=== PATIENT | female | born 1955 | race Caucasian/White ===

== ENCOUNTER 2021-11-17 17:54 | Emergency (ER) | payer OTHER, SELFPAY ==
[2021-11-17 17:58] VITALS: BP 126/77; PULSE 81; RESP 18; TEMP 36.3; O2SAT 93; BMI 25.0
--- NOTE | 2021-11-17 18:09 | EDS_ITS ---
HPI History of Present Illness Chief Complaint: Shortness of Breath Narrative Narrative: Patient presents with cough, and pulse ox of 91%. She has past medical history of hypothyroid, and states that she is on day 11 of COVID. She had a fever the first 5 days and has had night sweats for 10 days. Her night sweats resolved, but returned last evening. She states that she has been checking her pulse ox and it was as low as 91%. She called her primary care physician who told her she needed to come to the emergency department for an evaluation and get checked. She states she continues to have shortness of breath, occasional nonproductive cough, and fatigue. She is not on any m edication for COVID-19 because she was told that it would interact with some of her other medications. [facility] Medical History (Updated 11/17/21 @ 18:58 by Cruzito Null MD) COVID Allergy/AdvReac Type Severity Reaction Status Date / Time paclitaxel [From Taxol] Allergy Anaphylaxis Verified 11/17/21 17:58 thimerosal Allergy Hives Verified 11/17/21 17:58 simvastatin AdvReac Other Verified 11/17/21 17:58 topiramate AdvReac Other Verified 11/17/21 17:58 Social History Smoking Status: Unknown if ever smoked ROS ROS ED ROS Narrative Constitutional: No fever, no chills, positive night sweats. HEENT: No sore throat. No neck pain. No loss of vision. No rhinorrhea. Cardiovascular: No chest pain. No palpitations. No pedal edema. Respiratory: Positive nonproductive cough, positive shortness of breath. Abdominal: No abdominal pain. No nausea. No vomiting. Genitourinary: No dysuria. No hematuria. Musculoskeletal: No myalgias. No arthralgias. Neurologic: No headaches. No dizziness. No lightheadedness. Skin: No rash. No change in color. Psychiatric: No depression. No anxiety. EXAM Physical Exam Narrative Exam Narrative: Afebrile. Vital signs noted. Nontoxic-appearing. HEENT: Normocephalic. Atraumatic. PERRL, EOMI. Neck soft and supple. No point tenderness or step off. Cardiovascular: Regular rate and rhythm. No murmurs, rubs, or gallops appreciated. Respiratory: No tachypnea. Lungs clear to auscultation bilaterally. Gastrointestinal: Abdomen soft, nontender, with normoactive bowel sounds. No rebound or guarding. Neurological: Awake. Alert. Nonfocal, nonlateralizing. Skin: No rash. Normal color. No pallor. Musculoskeletal: No pedal edema. Full range of motion extremities. Const Vital Signs: 11/17/21 17:58 11/17/21 18:32 Temperature 97.4 F L Temperature Source Temporal Pulse Rate 81 Respiratory Rate 18 Respiratory Effort Normal Non-Labored Respiratory Depth Normal Respiratory Pattern Normal Blood Pressure 126/77 H Blood Pressure Mean 93 Pulse Ox 93 Oxygen Delivery Method Room Air MDM MDM MDM Narrative Medical decision making narrative: Pulse ox is 93% on room air at rest. She will be ambulated with a pulse ox here in the emergency department. We will obtain a chest x-ray to look for COVID-pneumonia. I do not feel laboratory work is indicated. She has a normal heart rate of 81. I am not concerned for pulmonary embolism. She is not having chest pain. Chest x-ray interpreted by myself shows no acute process, no pneumonia, no groundglass appearance/infiltrates. Ambulatory pulse ox was 96 to 97% according to the RN. There has been no evidence of hypoxia here. She does not qualify for home oxygen. At this point in time, she was reassured. I do not feel that Decadron is indicated. I feel she can be discharged safely home with follow-up to her primary care physician. Return instructions were reviewed. Disposition is discharged home in stable condition. Radiography Diagnostic Testing: Clinical Impression(s) from Imaging Studies Chest X-Ray 11/17/21 18:10 IMPRESSION: 1. No evidence of acute cardiopulmonary process Electronically Signed: Casey May MD at 18:52 EDT , Discharge Plan Triage Chief Complaint: Shortness of Breath ED Provider: Cruzito Null Dx/Rx/DC Orders Clinical Impression: COVID-19, Shortness of breath Instructions: Coronavirus Disease 2019 (COVID-19): Caring for Yourself or Others, ED Dyspnea Primary Care Provider: Rowan Capps NP Referrals: Rowan Capps [employer]CRETE BUCKET HOOKER, CONCR[employer] [employer]OOK[facility] [Primary Care Provider] - 1 Week if not improving Disposition Disposition: Home, Self Care
--- NOTE | 2021-11-17 18:10 | RAD_ITS ---
INDICATION: Shortness of Breath EXAMINATION/TECHNIQUE: X-RAY - XR Chest 1 View COMPARISON: None. FINDINGS: LIFE-SUPPORT AND LINES: 1. None HEART AND VESSELS: The cardiac silhouette, pulmonary vasculature have normal appearance. No evidence of congestive failure. LUNGS AND PLEURAL SPACES: Lungs are clear. No focal infiltrate, consolidation or effusions. No evidence of pneumothorax. No pulmonary mass is noted. MEDIASTINUM AND HILAR REGIONS: No masses adenopathy noted. No areas of calcification. Visualized upper airway is normal in position. BONY ELEMENTS: No acute bony changes noted. RAD/Chest 1 View (Portable) IMPRESSION: 1. No evidence of acute cardiopulmonary process Electronically Signed: Casey May MD at 18:52 EDT ,
[2021-11-17 18:31] VITALS: O2SAT 97
== END 2021-11-17 19:03 | disposition home or self-care (01) ==
PROVIDERS: Emergency Provider Emergency Medicine; PCP Registered Nurse; Visit Provider Emergency Medicine
DX: U07.1 COVID-19 (principal); R06.02 Shortness of breath; E03.9 Hypothyroidism, unspecified
CPT/HCPCS: 71045; 99282

== ENCOUNTER 2022-12-03 12:08 | Emergency (ER) | payer MEDICARE, SELFPAY ==
[2022-12-03 12:09] VITALS: BP 116/63; PULSE 74; RESP 14; TEMP 36.6; O2SAT 99
--- NOTE | 2022-12-03 12:26 | EDS_ITS ---
HPI <TRINITY Johnson - Last Filed: 12/03/22 16:03> History of Present Illness Chief Complaint: Eye Problem Narrative Narrative: Patient presenting today due to painful R eye movements that she has had since last night. She reports that she noticed the R periocular area was tender to touch when she was applying her eye cream last night. She denies any visual changes such as blurred vision, foreign body sensation in the eye, difficulty focusing the eye, or decreased visual acuity. She did not injure her eye, she is asymptomatic in the left eye. She reports that she had an infusion of Zometa for the first time on Monday that is used to treat hypercalcemia from the medication she is taking for her ovarian cancer. While getting that infusion she noticed that the right side of her lips felt swollen and numb. She did call her oncologist office today to report her eye symptoms and they told her that this can be a side effect of the Zometa and to follow-up with an silver wrapper immediately, however, she is unable to get into any because it is the weekend. Patient is a PMH of trigeminal neuralgia which was treated with a decompression surgery, migraines, ovarian cancer, and hypothyroidism. PFSH <TRINITY Johnson - Last Filed: 12/03/22 16:03> PFSH Medical History COVID Home Medications prednisone 20 mg tablet 20 mg PO BID #10 tabs 12/03/22 [Rx Last Taken Unknown] Allergy/AdvReac Type Severity Reaction Status Date / Time paclitaxel [From Taxol] Allergy Anaphylaxis Verified 12/03/22 12:09 thimerosal Allergy Hives Verified 12/03/22 12:09 simvastatin AdvReac Other Verified 12/03/22 12:09 topiramate AdvReac Other Verified 12/03/22 12:09 Social History Smoking Status: Unknown if ever smoked ROS <TRINITY Johnson - Last Filed: 12/03/22 16:03> ROS ED Constitutional Constitutional ED: Denies chills or fever(s) Eyes Eyes: Denies blurry vision, diplopia, discharge from eye(s), erythema, foreign body, photophobia or spots in vision ENT ENT ED: Denies discharge from eye(s) Cardiovascular Cardiovascular: Denies chest pain Respiratory/Chest Respiratory/Chest: Denies cough or dyspnea Gastrointestinal Gastrointestinal: Denies abdominal pain, nausea or vomiting Musculoskeletal Musculoskeletal: Denies arthralgias or myalgias Integumentary Denies abscess, Abrasions or rash Neurologic Neurologic: Denies headache(s) or weakness EXAM <TRINITY Johnson - Last Filed: 12/03/22 16:03> Physical Exam Const Vital Signs: 12/03/22 12:09 Temperature 98 F Temperature Source Temporal Pulse Rate 74 Respiratory Rate 14 Blood Pressure 116/63 Blood Pressure Mean 80 Pulse Ox 99 Oxygen Delivery Method Room Air Positive well nourished, well developed and no apparent distress General Appearance ED: well developed HEENT Reports normocephalic and head/scalp atraumatic Mouth ED: Yes moist mucous membranes normal Eyes PERRL, EOMs intact bilaterally, conjunctivae normal and no scleral icterus Visual Acuity: acuity normal Neck full ROM and supple Chest Wall inspection of chest normal Resp normal respiratory effort and clear to auscultation bilaterally Cardio regular rate and regular rhythm GI soft to palpation, non-tender, non-distended and no masses Back/Spine normal ROM and normal to inspection Extremity normal to inspection and full ROM Neuro oriented x3, CN's II-XII intact bilaterally, moves all extremities, no focal motor deficits and no sensory deficits noted Sensorium / Orientation: awake and alert Psych mental status grossly normal and thought process normal Skin no rashes or lesions noted and no wounds [facility] <TRINITY Johnson - Last Filed: 12/03/22 16:03> [facility] Narrative Medical decision making narrative: Patient presenting today due to painful extraocular eye movements that she has had since last night. She does not have any injection of the cornea to suggest acute glaucoma, corneal ulcer or abrasion. Visual acuity is intact. Labs obtained and are unremarkable. CT scan of the orbits obtained and is suggestive of possible bilateral orbital cellulitis, however this is not consistent with wagner fontenot's examination. Attending ED physician did discuss the case with ophthalmology and they feel it is more of an inflammatory response due to the medication Zometa. She will be put on prednisone and will be following up with the office on Monday. Patient is okay with this plan and will be discharged home in stable condition. She is comfortable with plan. I have personally performed a face to face assessment of the patient and have reviewed the ALEX Note. I performed a substantive portion of the visit including all aspects of the following. My lazaro findings include: History is [patient presents with right eye pain that started yesterday. Patient states that she had an infusion of Zometa 4 days ago. She had a virtual visit with nurse practitioner at [facility] [place] today regarding the eye pain and was told that she needed to be seen today. She denies any vision changes. She denies any trauma to her eye. She denies fever or recent illness. Patient states she has ovarian cancer but cannot tolerate chemotherapy and because they worry about hypercalcemia with her current treatment they were going to start the Zometa infusions and this was her first infusion. Nurse practitioner told her there may be a reaction to the Zometa and she need to be seen today.] Exam is [HEDAMIENPERRTHOMAS, EOMI. Cranial nerves II through XII grossly intact. TMs clear. Mucous membranes moist. No adenopathy. Patient has painful extraocular muscle movements although they are normal. Corneas clear and pupils are reactive bilaterally. Cardiovascular-regular rate and rhythm without murmur or ectopy Lungs-clear to auscultation, chest wall stable without crepitus or subcu emphysema Abdomen-normoactive bowel sounds, soft, nontender, no rebound or rigidity, no peritoneal signs. Extremities-intact ?4, normal range of motion, normal pulses, atraumatic] Medical Decison Making [patient with right eye pain after Zometa infusion 4 days ago. She had a CBC with differential that was normal. Chemistries unremarkable other than a slightly depressed calcium of 7.9. Patient had a CT scan of the orbits that showed some nonspecific stranding to the posterior aspect of the globe and anterior extraocular muscles. Findings were bilateral and radiology thought maybe represent orbital cellulitis. Clinically I do not feel she has orbital cellulitis. I did discuss case with Dr. Meeks who is on for ophthalmology and he feels this may be more of an inflammatory response related to the Zometa. Plan will be to treat patient with prednisone and have her follow-up with his office in 2 days. He will then likely order an outpatient MRI to evaluate further. I do not feel this needs to be done emergently today. Patient comfortable with plan.] Other additions or changes: [None] Lab Data Attestation: I reviewed the patient's lab results. Lab results narrative: CBC unremarkable, anion gap 3, BUN 19, calcium 7.9 <Dr. Fransisca Ferrara, DO - Last Filed: 12/03/22 15:34> [facility] Narrative Medical decision making narrative: I have personally performed a face to face assessment of the patient and have reviewed the ALEX Note. I performed a substantive portion of the visit including all aspects of the following. My lazaro findings include: History is [patient presents with right eye pain that started yesterday. Patient states that she had an infusion of Zometa 4 days ago. She had a virtual visit with nurse practitioner at [facility] [place] today regarding the eye pain and was told that she needed to be seen today. She denies any vision changes. She denies any trauma to her eye. She denies fever or recent illness. Patient states she has ovarian cancer but cannot tolerate chemotherapy and because they worry about hypercalcemia with her current treatment they were going to start the Zometa infusions and this was her first infusion. Nurse practitioner told her there may be a reaction to the Zometa and she need to be seen today.] Exam is [HEENT-PERRLA, EOMI. Cranial nerves II through XII grossly intact. TMs clear. Mucous membranes moist. No adenopathy. Patient has painful extraocular muscle movements although they are normal. Corneas clear and pupils are reactive bilaterally. Cardiovascular-regular rate and rhythm without murmur or ectopy Lungs-clear to auscultation, chest wall stable without crepitus or subcu emphysema Abdomen-normoactive bowel sounds, soft, nontender, no rebound or rigidity, no peritoneal signs. Extremities-intact ?4, normal range of motion, normal pulses, atraumatic] Medical Decison Making [patient with right eye pain after Zometa infusion 4 days ago. She had a CBC with differential that was normal. Chemistries unremarkable other than a slightly depressed calcium of 7.9. Patient had a CT scan of the orbits that showed some nonspecific stranding to the posterior aspect of the globe and anterior extraocular muscles. Findings were bilateral and radiology thought maybe represent orbital cellulitis. Clinically I do not feel she has orbital cellulitis. I did discuss case with Dr. Meeks who is on for ophthalmology and he feels this may be more of an inflammatory response related to the Zometa. Plan will be to treat patient with prednisone and have her follow-up with his office in 2 days. He will then likely order an outpatient MRI to evaluate further. I do not feel this needs to be done emergently today. Patient comfortable with plan.] Other additions or changes: [None] Discharge Plan Triage Chief Complaint: Eye Problem ED Midlevel Provider: Ping Addison ED Provider: Fransisca Ferrara Dx/Rx/DC Orders Clinical Impression: Acute right eye pain Instructions: ED Pain, Acute, Uncertain Cause Prescriptions: New prednisone 20 mg tablet 20 mg PO BID Qty: 10 0RF Primary Care Provider: Rowan Capps NP Referrals: Juan Meeks MD [Med Staff - Active Staff] - 2 Days Rowan Capps NP, [employer] ADMINISTRATOR-C [Primary Care Provider] - Disposition Disposition: Home, Self Care Discharge Date/Time: 12/03/22 15:43
--- NOTE | 2022-12-03 12:49 | CT_ITS ---
STUDY: CT ORBITS WITHOUT CONTRAST REASON FOR EXAM: Female, 67 years old. pain with extraocular movements -- no contrast needed RADIATION DOSAGE (If Supplied By Facility): CTDIvol = ( 29.38 ) mGy, DLP = ( 451.96 ) mGycm TECHNIQUE: The patient was scanned in a multi detector CT scanner. Transaxial imaging was performed without the administration of intravenous contrast material. Sagittal and coronal images were reconstructed. Individualized dose optimization techniques were used for this CT. COMPARISON: None. FINDINGS: Normal globes. There is subtle stranding of the fat surrounding the posterior aspect of the globe in the anterior extraocular musculature bilaterally suggestive of orbital cellulitis. No loculated fluid collection to suggest abscess. MRI may be more sensitive. Normal optic nerve sheath complex. Normal bilateral extraocular muscles. Normal lacrimal glands. Normal bilateral medial and inferior orbital richardson. Normal bilateral maxillary bones. Normal bilateral frontozygomatic arches. Normal bilateral zygomatic temporal arches. Normal frontal sinus. Normal ethmoidal sinuses. Normal maxillary sinuses. Normal sphenoid sinuses. Normal soft tissue structures. CT/Orb Sella Post Fossa Ear w/o IMPRESSION: Suspect bilateral orbital cellulitis but no obvious abscess. MRI would be more sensitive. Electronically Signed: Casey Woodard MD at 14:30 EDT ,
[2022-12-03 13:06] LABS: Basophil# 0.02 X10^3/uL; Basophil% 0.4 % (0-1); Eosinophil# 0.15 X10^3/uL; Eosinophils% 3.1 % (0-5); Hematocrit 37.5 % (37-47); Hemoglobin 12.3 g/dL (12.0-15.0); Lymphocyte % 25.1 % (19-41); Mean Corp Hgb Conc 32.8 g/dL (32-36); Mean Corpuscular Hgb 28.9 pg (27.0-32.0); Mean Corpuscular Volume 88.2 fL (81-99); Monocyte# 0.41 X10^3/uL; Monocyte% 8.6 % (0-10); NRBC Flagged by Analyzer 0 % (0-5); Neutrophil # 2.99 X10^3/uL (2.7-7.7); Neutrophil % 62.6 % (47-70); Platelet Count 213 K/mm3 (150-450); RBC Distribution Width CV 13.6 % (11.6-14.6); RBC Distribution Width SD 43.7 fl (35.1-43.9); Red Blood Count 4.25 M/mm3 (4.2-5.4); White Blood Count 4.8 K/mm3 (4.4-11.0)
[2022-12-03 13:18] LABS: Anion Gap 3 (5-15); BUN 19 mg/dL (7-18); BUN/Creat Ratio 27.1 RATIO (10-20); Calcium,Total 7.9 mg/dL (8.5-10.1); Chloride 111 mmol/L (98-107); EST Glomerular Filtration Rate 89 mL/min (>60); Est Glom Filt Rate - Afr Amer 108 mL/min (>60); Glucose 99 mg/dL (74-106); Potassium 4.3 mmol/L (3.5-5.1); Sodium Level 142 mmol/L (136-145)
[2022-12-03] MEDS: predniSONE 20 MG Tablet 40 MG PO (15:40)
== END 2022-12-03 15:43 | disposition home or self-care (01) ==
PROVIDERS: Physician Assistant; Emergency Provider Emergency Medicine; PCP Registered Nurse; Referring Provider Emergency Medicine; Visit Provider Emergency Medicine
DX: H57.11 Ocular pain, right eye (principal); C56.9 Malignant neoplasm of unspecified ovary; E83.52 Hypercalcemia; Z79.899 Other long term (current) drug therapy
CPT/HCPCS: 70480; 80048; 85025; 99283; A4216